=== PATIENT | male | born 1960 ===

== ENCOUNTER 2017-03-07 10:43 | Day surgery (SDC) | payer BC ==
[2017-03-03 12:17] VITALS: BMI 18.6
[2017-03-07] MEDS ORDERED: Midazolam 2 MG/2 ML VIAL ONE ×2 (11:38→14:13)
[2017-03-07] MEDS ORDERED: Lidocaine 2% Inj (20ml) ONE (11:38)
[2017-03-07] MEDS ORDERED: HEPARIN SODIUM/NS 2,000 ML IV ONE (11:39)
[2017-03-07 11:57] LABS: BASO # 0.03 K/mm3 (0.0-2.0); BASO % 0.3 % (0.0-3.0); EOS # 0.4 (0.0-0.7); EOS % 3.2 % (1.5-5.0); GRAN # 8.16 (1.4-6.5); GRAN % 71.3 % (50.0-68.0); HEMOGLOBIN 10.5 g/dL (14.0-18.0); LYMPH # 2.2 (1.2-3.4); LYMPH % 19.2 % (22.0-35.0); MEAN CELL VOLUME 88.5 fl (80.0-105.0); MEAN CORPUSCULAR HGB CONC 31.6 g/dl (31.0-37.0); MEAN PLATELET VOLUME 8.8 fl (7.0-11.0); MONO # 0.7 (0.1-0.6); RBC 3.75 10^6/uL (3.5-6.1); RED CELL DISTRIBUTION WIDTH 13.7 % (11.5-14.5); WHITE BLOOD COUNT 11.4 10^3/ul (4.5-11.0)
[2017-03-07 12:05] LABS: BLOOD UREA NITROGEN 13 mg/dL (7-21); CALCIUM 8.9 mg/dL (8.4-10.5); GFR AFRICAN-AMERICAN > 60; GFR NON-AFRICAN AMERICAN > 60
[2017-03-07 12:09] LABS: INR 1.1 (0.93-1.08); PARTIAL THROMBOPLASTIN TIME 30.4 Seconds (25.1-36.5); PROTHROMBIN TIME 12.7 SECONDS (9.4-12.5)
[2017-03-07] MEDS ORDERED: Morphine 5 MG/ML SYRINGE ONE (14:26)
[2017-03-07] MEDS ORDERED: Oxycodone/Acetaminophen 5/325 mg Tab PO PRN (14:47)
[2017-03-07] MEDS ORDERED: Sodium Chloride 0.45% 1,000 ML IV SCH (15:00)
[2017-03-07 15:20] VITALS: O2SAT 99
[2017-03-07 15:41] VITALS: TEMP 97.2
[2017-03-07 16:53] VITALS: BP 114/74; PULSE 116; RESP 18
--- NOTE | 2017-03-07 19:11 | VASCULAR ---
PROCEDURE: Ultrasound fluoroscopically placed tunneled right pleural catheter CLINICAL HISTORY: Lung CA. Large recurrent right pleural effusion with shortness of breath. Multiple recent thoracentesis ease. Needs tunneled right pleural catheter PHYSICIAN(S): Kaiden Garcia MD. TECHNIQUE: The relative risks and indications of the procedure were explained to the patient and his and consent obtained. The patient was placed in a left decubitus position on the arteriography table and preliminary sonography of the right chest performed. This revealed a moderate to large right pleural effusion. Conscious sedation monitoring were provided throughout the procedure by a nurse. A right intercostal approach was selected in the area prepped and draped usual sterile fashion. 1 percent xylocaine was used to anesthetize the skin and soft tissues. 19 gauge needle was advanced into the right pleural cavity and 10 cc of telles fluid aspirated. 0.035 glidewire was advanced posteriorly and superiorly. A peel-away sheath was placed. Next a 15.5 Nepali Aspira catheter was advanced posteriorly and superiorly. The catheter was tunneled along the intercostal margin. The catheter was flushed and secured. Fluid was removed through the catheter. 1250 cc of bloody fluid was aspirated. The lung did not re-expand after aspiration and a moderate to large hydro pneumothorax is present. This likely represents bronchial obstruction from the large right lung malignancy. IMPRESSION: 1. Ultrasound and fluoroscopically placed tunneled right pleural catheter 2. 1250 cc of telles then bloody fluid was aspirated. 3. Moderate to large right hydro pneumothorax post placement. This likely represents central bronchial obstruction by the large right hilar mass.
== END 2017-03-07 17:15 | disposition home health service (06) ==
LOC: SDSVAS 10:43
PROVIDERS: ATTEND Radiology Vascular & Interventional Radiology
DX: J90 Pleural effusion, not elsewhere classified (principal); C34.90 Malignant neoplasm of unspecified part of unspecified bronchus or lung; J94.8 Other specified pleural conditions
CPT/HCPCS: 32550; 36415; 75989; 80048; 85025; 85610; 85730; 99152; C1729; C1769; J0690; J1644; J2250; J2405; J3010; J7030

== ENCOUNTER 2017-03-13 07:24 | Day surgery (SDC) | payer BC ==
[2017-03-03 12:17] VITALS: BMI 18.6
[2017-03-13] MEDS ORDERED: Lidocaine 2% Inj (20ml) ONE (08:22)
[2017-03-13] MEDS ORDERED: HEPARIN SODIUM/NS 1,000 ML IV ONE (08:22)
[2017-03-13] MEDS ORDERED: Midazolam 2 MG/2 ML VIAL ONE (08:45)
[2017-03-13] MEDS ORDERED: Oxycodone/Acetaminophen 5/325 mg Tab PO PRN (09:28)
[2017-03-13] MEDS ORDERED: Sodium Chloride 0.45% 1,000 ML IV SCH (09:30)
[2017-03-13 10:37] VITALS: RESP 18; TEMP 98.2
[2017-03-13 12:30] VITALS: BP 117/70; PULSE 84; O2SAT 96
--- NOTE | 2017-03-13 19:14 | VASCULAR ---
PROCEDURE: Ultrasound and fluoroscopic right internal jugular venous access port. CLINICAL HISTORY: Stage IV lung carcinoma.Venous port for chemotherapy. PHYSICIAN(S): Kaiden Garcia M.D. TECHNIQUE: The relative risks and indications of the procedure were explained to the patient and his and consent obtained. The patient was placed supine on the arteriogram table and the right neck and chest prepped and draped in the usual sterile fashion. Conscious sedation monitoring was provided throughout the procedure by a nurse. Antibiotics were given prior to the procedure. Under direct ultrasound guidance, the right internal jugular vein was punctured with a micro-puncture set. A 0.035 angled Glidewire was advanced into the IVC. A 4 cm incision was made below the right clavicle and the pocket blunted dissected. A 8 Swedish single-lumen catheter, 22 cm long, was advanced to the SVC/RA junction. The catheter was trimmed and attached to the port. The port aspirates and injects easily. The port was placed in the pocket and closed in 2 layers. The patient tolerated the procedure well. IMPRESSION: Ultrasound and fluoroscopically placed right internal jugular venous access port.
== END 2017-03-13 12:30 | disposition home or self-care (01) ==
LOC: SDSVAS 07:24
PROVIDERS: ATTEND Radiology Vascular & Interventional Radiology
DX: Z45.2 Encounter for adjustment and management of vascular access device (principal); C34.91 Malignant neoplasm of unspecified part of right bronchus or lung; I10 Essential (primary) hypertension; E03.9 Hypothyroidism, unspecified; E78.5 Hyperlipidemia, unspecified
CPT/HCPCS: 36561; 76937; 77001; 99152; C1769; C1788; J0690; J1644; J2250; J2405; J3010; J7030

== ENCOUNTER 2017-05-30 10:21 | Day surgery (SDC) | payer BC ==
[2017-03-03 12:17] VITALS: BMI 18.6
[2017-05-30 10:39] LABS: BASO # 0.02 K/mm3 (0.0-2.0); BASO % 0.2 % (0.0-3.0); EOS # 0.5 (0.0-0.7); EOS % 4.3 % (1.5-5.0); GRAN # 8.67 (1.4-6.5); GRAN % 76.9 % (50.0-68.0); HEMOGLOBIN 11.8 g/dL (14.0-18.0); LYMPH # 1.3 (1.2-3.4); LYMPH % 11.9 % (22.0-35.0); MEAN CELL VOLUME 86.6 fl (80.0-105.0); MEAN CORPUSCULAR HEMOGLOBIN 28.7 pg (25.0-35.0); MEAN CORPUSCULAR HGB CONC 33.1 g/dl (31.0-37.0); MEAN PLATELET VOLUME 8.8 fl (7.0-11.0); MONO # 0.8 (0.1-0.6); MONO % 6.7 % (1.0-6.0); RBC 4.11 10^6/uL (3.5-6.1); RED CELL DISTRIBUTION WIDTH 14.4 % (11.5-14.5); WHITE BLOOD COUNT 11.3 10^3/ul (4.5-11.0)
[2017-05-30 10:54] LABS: BLOOD UREA NITROGEN 12 mg/dL (7-21); CALCIUM 9.2 mg/dL (8.4-10.5); GFR AFRICAN-AMERICAN > 60; GFR NON-AFRICAN AMERICAN > 60
[2017-05-30 10:56] LABS: INR 1.03 (0.93-1.08); PARTIAL THROMBOPLASTIN TIME 31.6 Seconds (25.1-36.5); PROTHROMBIN TIME 11.9 SECONDS (9.4-12.5)
[2017-05-30] MEDS ORDERED: Lidocaine 2% Inj (20ml) ONE (11:59)
[2017-05-30] MEDS ORDERED: Midazolam 2 MG/2 ML VIAL ONE (11:59)
[2017-05-30] MEDS ORDERED: Oxycodone/Acetaminophen 5/325 mg Tab PO PRN (13:38)
[2017-05-30] MEDS ORDERED: Sodium Chloride 0.45% 1,000 ML IV SCH (13:45)
[2017-05-30 14:35] VITALS: BP 102/61; PULSE 98; RESP 20; TEMP 98.1; O2SAT 100
--- NOTE | 2017-05-30 17:45 | VASCULAR ---
PROCEDURE: Remove right tunneled pleural catheter. HISTORY: Right lung CA with malignant effusion. Previously placed right pleural catheter. The catheter is clogged and not draining. Needs removal. PHYSICIAN(S): Kaiden Garcia MD. TECHNIQUE: The relative risks and indications of the procedure were explained the patient and his and consent obtained. The patient was placed supine on the arteriogram table and the tunneled catheter prepped and draped usual sterile fashion. Conscious sedation monitoring were provided throughout the procedure by a nurse. 1 percent xylocaine was used to anesthetize the skin soft tissues at the exit site tunnel. The tunnel was bluntly dissected. The tunneled catheter was removed in a single interrupted suture placed at the exit site. The patient tolerated the procedure well. FINDINGS: . IMPRESSION: Removal of the patient's tunneled right pleural catheter
== END 2017-05-30 15:05 | disposition home or self-care (01) ==
LOC: SDSVAS 10:21
PROVIDERS: ATTEND Radiology Vascular & Interventional Radiology
DX: T85.9XXA Unspecified complication of internal prosthetic device, implant and graft, initial encounter (principal); Y83.8 Other surgical procedures as the cause of abnormal reaction of the patient, or of later complication, without mention of misadventure at the time of the procedure; C34.91 Malignant neoplasm of unspecified part of right bronchus or lung; J91.0 Malignant pleural effusion; I10 Essential (primary) hypertension; E78.5 Hyperlipidemia, unspecified
CPT/HCPCS: 32552; 36415; 80048; 85025; 85610; 85730; 99152; C1769; J1644; J2250; J2405; J3010; J7030